=== PATIENT | male | born 1950 | race Caucasian/White ===

== ENCOUNTER 2018-06-04 16:07 | Emergency (ER) | payer MEDICARE, BC ==
[~2018-06-04] VITALS: Ht 175.3 cm; Wt 79.5 kg
[~2018-06-04 16:07] MED LIST: ASPIRIN 32325 MG/TAB PO; LEVOXYL0.1 MG PO; MICARDIS80 MG PO
[2018-06-04 16:11] VITALS: BP 199/100; PULSE 107; TEMP 98.3
[2018-06-04] MEDS ORDERED: AMOXICILLIN 8751 TAB PO (19:22)
[2018-06-04] MEDS ORDERED: MICARDIS80 MG PO (20:10)
== END 2018-06-04 17:22 | disposition left against medical advice (07) ==
LOC: COL.ER 16:07
DX: S61.211A Laceration without foreign body of left index finger without damage to nail, initial encounter (principal); W26.8XXA Contact with other sharp object(s), not elsewhere classified, initial encounter

== ENCOUNTER 2018-06-04 18:08 | Emergency (ER) | payer MEDICARE, BC ==
[~2018-06-04] VITALS: Ht 175.3 cm; Wt 79.5 kg
[2018-06-04 18:18] VITALS: TEMP 98.4
[2018-06-04] MEDS ORDERED: AMOXICILLIN 8751 TAB PO (19:22)
[2018-06-04] MEDS ORDERED: MICARDIS80 MG PO (20:10)
[2018-06-04 20:26] VITALS: BP 184/103; PULSE 96
== END 2018-06-04 20:26 | disposition home or self-care (01) ==
LOC: COL.ER 18:08
DX: S61.211A Laceration without foreign body of left index finger without damage to nail, initial encounter (principal); I10 Essential (primary) hypertension; Z23 Encounter for immunization; W26.8XXA Contact with other sharp object(s), not elsewhere classified, initial encounter

== ENCOUNTER 2018-09-12 09:27 | Day surgery (SDC) | payer MEDICARE, BC ==
[~2018-09-12] VITALS: Ht 175.3 cm; Wt 82.1 kg
[~2018-09-12 09:27] MED LIST changes: +AMOXICILLIN 8751 TAB PO; +MULTI VITAMINS1 TAB PO; +PROBIOTIC FORMU1 CAP PO
[2018-09-12 09:45] VITALS: BP 180/94; PULSE 91; TEMP 98.2
--- NOTE | 2018-09-12 10:03 | NUR ---
Patient's blood pressure when re-checked on right arm reads 171/96. Notified anesthesia provider of pre-op vitals.
[2018-09-12] MEDS ORDERED: NORCO 325 MG-51 TAB PO (14:01)
[2018-09-12 14:27] VITALS: TEMP 97
[2018-09-12 15:25] VITALS: BP 146/75; PULSE 81
--- NOTE | 2018-09-12 15:25 | NUR ---
Patient returns to room 1 per cart from PACU and is awake and alert. Temp 98.2 and room air sats 98%. Bandaid dressings x2 on abdomen clean and dry. IV fluids infusing and denies pain or nausea at present time. Assisted up to the bathroom and is able to void and returns to room. Gait steady. Siderails up x2.
[2018-09-12 15:40] VITALS: BP 147/81; PULSE 85
--- NOTE | 2018-09-12 15:40 | NUR ---
Patient is drinking water and eating muffin. Room air sats 96%. IV fluids infusing.
[2018-09-12 15:55] VITALS: BP 146/87; PULSE 84
--- NOTE | 2018-09-12 15:55 | NUR ---
The patient's vital signs are stable. The patient tolerated the muffin and water and denies any complaints of nausea. The patient states he is a little sore and would like a pain pill before he is discharged. A Conestoga will be administered. The call light is within reach. Will continue to monitor.
[2018-09-12 16:10] VITALS: BP 134/78; PULSE 87
--- NOTE | 2018-09-12 16:10 | NUR ---
The patient's vital signs are stable. The patient denies any complaints or concerns and would like to be discharged. The discharge instructions will be reviewed with the patient.
--- NOTE | 2018-09-12 16:11 | NUR ---
The discharge instructions are reviewed with the patient and all questions are answered. The IV is removed and the tip is intact and a dressing is applied. The patient changes into his personal clothes to be discharged home.
--- NOTE | 2018-09-12 16:25 | NUR ---
The patient is wheeled to the ER entrance via wheelchair to be discharged home via personal vehicle by his sister in-law. The patient is sent home with discharge instructions, education packet, follow-up appointment card, and prescription.
== END 2018-09-12 16:25 | disposition home or self-care (01) ==
LOC: SDCO 09:27
DX: R14.0 Abdominal distension (gaseous) (principal); Z87.19 Personal history of other diseases of the digestive system; I10 Essential (primary) hypertension; G89.29 Other chronic pain; M54.5 Low back pain; Z80.41 Family history of malignant neoplasm of ovary; Z80.42 Family history of malignant neoplasm of prostate; Z80.49 Family history of malignant neoplasm of other genital organs; Z79.899 Other long term (current) drug therapy
CPT/HCPCS: J0360; J2704; J3010; J7120

== ENCOUNTER 2018-09-12 19:46 | Inpatient (IN) | payer MEDICARE, BC ==
[~2018-09-12] VITALS: Ht 175.3 cm; Wt 84.0 kg
[~2018-09-12 19:46] MED LIST changes: +NORCO 325 MG-51 TAB PO
[2018-09-12 20:31] LABS: BASO # 0.1 (0.0-0.2); BASO % 0.3 % (0.0-2.0); EOS % 0.1 % (0-4.0); GRAN # 20.9 (1.4-6.5); GRAN % 93.5 % (42.2-75.2); HEMATOCRIT 46.1 % (42.0-52.0); HEMOGLOBIN 15.2 g/dl (13.5-18.0); LYMPH # 0.7 (1.2-3.4); LYMPH % 3.1 % (20.0-51.0); MEAN CELL VOLUME 87 fl (80.0-100.0); MEAN CORPUSCULAR HEMOGLOBIN 29 pg (27.0-31.0); MEAN CORPUSCULAR HGB CONC 33 g/dl (33.0-37.0); MEAN PLATELET VOLUME 9.8 fl (7.4-10.4); MONO # 0.6 (0.1-0.6); MONO % 2.6 % (1.7-9.3); PLATELET COUNT 264 K/mm3 (130-400); REDCELL DISTRIBUTION WIDTH-CV 13.2 % (11.5-14.5)
[2018-09-12 20:43] LABS: ALBUMIN 4.3 gm/dL (3.5-5.0); CALCIUM 9.1 mg/dL (8.4-10.2); CREATININE, serum 0.88 mg/dL (0.66-1.25); POTASSIUM 4.1 mmol/L (3.4-5.0); TOTAL PROTEIN 7.4 gm/dL (6.4-8.2)
[2018-09-12 22:40] VITALS: BP 125/72; PULSE 107; TEMP 98.9
[2018-09-12 22:42] LABS: COLLECTION METHOD CLEAN CATCH
[2018-09-12 22:48] LABS: MUCOUS Present /lpf; PH 6 (5-8); SQUAMOUS EPITHELIAL None Seen /hpf; URINE APPEARANCE Clear; URINE BACTERIA None Seen /hpf; URINE BILIRUBIN Negative (NEGATIVE); URINE BLOOD Negative (NEGATIVE); URINE COLOR Yellow; URINE GLUCOSE Negative (NEGATIVE); URINE KETONE 1+ (NEGATIVE); URINE LEUKOCYTE ESTERASE Negative (NEGATIVE); URINE NITRATE Negative (NEGATIVE); URINE PROTEIN(semi-quant) Negative (NEGATIVE); URINE RBC 0-2 /hpf; URINE UROBILINOGEN Negative (NEGATIVE)
--- NOTE | 2018-09-12 23:00 | NUR ---
Patient arrived from the ER via wheelchair at 2215 into room 325. Admission B and assessment completed. Med-rec reviewed and allergies confirmed. Patient had a Diagnostic Laprascopy earlier today with Dr. Grey. Patient has 2 lap sites with edges well approximated. Denies passing any gas. Bowel sounds hypoactive. Reports abdominal pressure/soreness to umbilical/lower abdomen, denies needing any pain medication at this time states he just wants to get some sleep. Denies any nausea. Voided with no difficulities, UA sent to lab. IVF initiated per orders. Patient made aware that he is NPO at this time. Denies any concerns or needs. Bed is in a low position with call light in reach.
[2018-09-13] VITALS (15 sets, daily range): BP systolic 96–134; BP diastolic 59–83; PULSE 75–106; TEMP 97.3–99.6
--- NOTE | 2018-09-13 03:24 | NUR ---
Patient is resting in bed states he feels when he gets any kind of pain medication it makes his abdomen feel worse, right now he is complaining of a lot of lower abdominal cramping. Continues to deny passing any gas. Offered to make patient a heat pad to help with the abdominal cramping and patient declined at this time.
--- NOTE | 2018-09-13 04:05 | NUR ---
Patient is awake resting in bed, reports the lower abdominal cramping has subsided for now. Denies any needs or concerns. Has been up independently in room ambulating.
--- NOTE | 2018-09-13 06:50 | NUR ---
lab in to draw blood, bedside shift report received from JUD Fox
[2018-09-13 07:02] LABS: HEMATOCRIT 43.9 % (42.0-52.0); HEMOGLOBIN 14.5 g/dl (13.5-18.0); MEAN CELL VOLUME 87 fl (80.0-100.0); MEAN CORPUSCULAR HEMOGLOBIN 29 pg (27.0-31.0); MEAN CORPUSCULAR HGB CONC 33 g/dl (33.0-37.0); MEAN PLATELET VOLUME 9.8 fl (7.4-10.4); PLATELET COUNT 237 K/mm3 (130-400); RED BLOOD COUNT 5.05 M/mm3 (4.20-5.60); REDCELL DISTRIBUTION WIDTH-CV 13.6 % (11.5-14.5)
--- NOTE | 2018-09-13 07:30 | NUR ---
Dr Grey in to see patient
--- NOTE | 2018-09-13 08:04 | NUR ---
resting in bed, full assessment completed, see interventions for further info, consent signed for surgery later
[2018-09-13 08:33] LABS: BAND 1 % (0-10); EOSINOPHIL 1 % (0-4); LYMPHOCYTE 3 % (20.0-51.0); NEUTROPHILS 94 % (42.0-75.2)
[2018-09-13 08:34] LABS: PLATELET ESTIMATE NORMAL (NORMAL)
--- NOTE | 2018-09-13 09:44 | NUR ---
up to bathroom and voided qs, then back to bed, to surgery per bed, report called to SCOTT Bustillo
--- NOTE | 2018-09-13 13:20 | NUR ---
returned to room per bed from PACU, awake and alert, IVinfusing and placed on pump at 125ml/hr, SCDS on bilaterally, has low pubic line incision with small amount drainage approx 2cm, midline incision without drainage, he is awake and alert, color good, heart rate strong and regular, lungs CTA, abdomen soft and non distended, and bowel sounds quiet, peripheral pulses present in 4 extremities,
--- NOTE | 2018-09-13 14:15 | NUR ---
SUBWAY GUARD started and loading dose of 2mg given, patietn instructed on use of SUBWAY GUARD and verbalizes understanding
--- NOTE | 2018-09-13 14:43 | NUR ---
SW met with patient to discuss discharge planning. Patient lives alone in [place]. His PCP is Dr Juvenal Davalos and he obtains his medications from either [facility] or [facility]. Patient was provided with DPOA forms on his last stay but reports he doesnt have them compeleted at this time. Patient does not have any unmet discharge needs at this time and plans to return home.
--- NOTE | 2018-09-13 15:00 | NUR ---
dozes between checks but awakens easily, denies needs
--- NOTE | 2018-09-13 16:26 | NUR ---
Dr Grey in to see patient
--- NOTE | 2018-09-13 16:37 | NUR ---
voided using urinal, states is using SHEAR TENDER at times
--- NOTE | 2018-09-13 16:45 | NUR ---
awake now but resting in bed, denies needs
--- NOTE | 2018-09-13 18:17 | NUR ---
resting in bed with eyes closed
--- NOTE | 2018-09-13 18:40 | NUR ---
bedside shift report given to JUD Fox
--- NOTE | 2018-09-13 20:20 | NUR ---
Assessment completed. Patient is A&O x 4, resting in bed awakens easily. VSS, currently on room air. Morpine KILNMAN available for abdominal pain control, reports it has been helping with his pain. Abdomen is soft, slightly distended with hypoactive bowel sounds. Abdominal proximal dressing with gauze has a small amount of shadowing on dressing, drainage marked. Distal abdominal gauze dressing with a scant amount of drainage that was previously marked no increase in the drainage. Denies passing any gas or nausea. Voiding with no difficulities, urine is yellow clear. IVF infusing with intermittent antibiotic per orders. BLE scds on. Denies any concerns or needs at this time. Bed is in a low position with call light in reach.
--- NOTE | 2018-09-13 21:15 | NUR ---
Patient sitting up in bed currently sipping on chicken broth, denies any nausea. Continues to use Morphine TITLE I MATH TUTOR for abdominal pain control.
[2018-09-14] VITALS (10 sets, daily range): BP systolic 110–163; BP diastolic 65–88; PULSE 86–104; TEMP 97.4–99.7
--- NOTE | 2018-09-14 06:14 | NUR ---
Patient has rested for short periods of time through the night between nursing disruptions. VSS. Morphine ASSISTIVE TECHNOLOGY TRAINER available for pain control. Abdominal gauze dressings with no increase in drainage. Continues to deny passing any gas. Tolerating diet with no c/o nausea. IVF remain infusing. Bed remains in a low position with call light in reach.
--- NOTE | 2018-09-14 06:50 | NUR ---
resting in bed, bedside shift report received from JUD Fox
[2018-09-14 07:00] LABS: BASO % 0.2 % (0.0-2.0); EOS # 0.1 (0.0-0.7); EOS % 0.9 % (0-4.0); GRAN % 89.9 % (42.2-75.2); LYMPH # 0.6 (1.2-3.4); LYMPH % 4.5 % (20.0-51.0); MEAN CELL VOLUME 89 fl (80.0-100.0); MEAN CORPUSCULAR HGB CONC 32 g/dl (33.0-37.0); MEAN PLATELET VOLUME 10.3 fl (7.4-10.4); MONO # 0.5 (0.1-0.6); PLATELET COUNT 176 K/mm3 (130-400); RED BLOOD COUNT 4.16 M/mm3 (4.20-5.60)
[2018-09-14 07:01] LABS: HEMATOCRIT 36.8 % (42.0-52.0); HEMOGLOBIN 11.9 g/dl (13.5-18.0); MEAN CORPUSCULAR HEMOGLOBIN 29 pg (27.0-31.0)
--- NOTE | 2018-09-14 07:20 | NUR ---
entered room and assisted him up to sitting on side of bed, then was able to stand and then take few steps to recliner, into recliner to rest, c/o pressure feeling in abdomen, as if he needs to belch, starts to belch and then unable, abdomen distended but soft, minimal bowel sounds auscultated, states he does feel better being up, full assessment completed, see interventions for further info, denies further needs
[2018-09-14 07:32] LABS: CALCIUM 7.8 mg/dL (8.4-10.2); CREATININE, serum 0.82 mg/dL (0.66-1.25); POTASSIUM 3.8 mmol/L (3.4-5.0)
--- NOTE | 2018-09-14 08:50 | NUR ---
Dr Grey in to see patient
--- NOTE | 2018-09-14 09:32 | NUR ---
ambulated out in schwartz approx 50 feet, then back to room and into recliner
--- NOTE | 2018-09-14 10:46 | NUR ---
resting in chair, morphine COMMERCIAL ENERGY RATER vial replaced, patient denies needs
--- NOTE | 2018-09-14 13:20 | NUR ---
ambulated in schwartz 50-75 feet and tolerated well, ambulated back to room and into recliner as this is most comfortable
--- NOTE | 2018-09-14 14:40 | NUR ---
family in to visit, denies needs
--- NOTE | 2018-09-14 15:45 | NUR ---
remains sitting up in chair per his request for comfort, denies needs
--- NOTE | 2018-09-14 17:00 | NUR ---
remains in chair per his request, denies needs
--- NOTE | 2018-09-14 17:58 | NUR ---
called nurse and stated he had blood in his urine, entered room and he had used urinal and it was thi in color but no obvious blood, did have a tissue that he said he had used to clean himself that had spots of blood on it, cleansed his penis and meautus and no obvious bleeding noted, stated he had been up standing at chair before this happened, informed him we will monitor
--- NOTE | 2018-09-14 18:47 | NUR ---
bedside shift report given to JUD Calderón
--- NOTE | 2018-09-14 20:00 | NUR ---
atient in chair resting. Alert and oriented x3. Shift assessment complete Gauze to midline distal and proximal with drainage present. CITY CARRIER ASSISTANT and IV fluids infusing to right AC via pump. States mild abdominal cramping. Denies passing gas. Abdomen distended. Denies further needs at this time.
--- NOTE | 2018-09-14 21:00 | NUR ---
Patient states discomfort to abdomen, would like to ambulate. Ambulated >150 feet, steady gait. Denie further needs at this time.
[2018-09-15] VITALS (9 sets, daily range): BP systolic 141–160; BP diastolic 70–88; PULSE 93–103; TEMP 98.5–99.3
--- NOTE | 2018-09-15 05:45 | NUR ---
Patient has rested intermittently through the night. States he is still not able to pass gas, however he is now belching. Continues to feel distended. No change to drainage on dressing. Denies further needs at this time. Will report off to day shift.
--- NOTE | 2018-09-15 10:00 | NUR ---
CHANGED ABDOMINAL DRESSING. KARL INTACT. APPLIED GAUZE & HYPAFIX. GAVE PRN SUPP. PATIENT IN BATHROOM.
--- NOTE | 2018-09-15 17:00 | NUR ---
DR.PAULS [place].
[2018-09-16] VITALS (7 sets, daily range): BP systolic 143–164; BP diastolic 82–90; PULSE 89–100; TEMP 98–98.4
--- NOTE | 2018-09-16 04:03 | NUR ---
Patient resting in bedside recliner at this time. Patient is alert and oriented, answers questions appropriately. IVF and WATER AND GAS HELPER in place per order. Abdomen is distended and firm, patient reports that he passed some gas today and is feeling somewhat better. Hot packs to back and abdomen for patient comfort. Midline is CDI. Patient denies further needs at this time, call light within reach.
--- NOTE | 2018-09-16 05:52 | NUR ---
Patient has rested intermittently overnight. IVF and NURSE WOUND continue per order. Patient has made no complaints of pain or nausea. Warm packs to abdomen and back for patient comfort. Patient denies further needs at this time, call light within reach.
--- NOTE | 2018-09-16 09:08 | NUR ---
Assessment completed, alert/oriented, vital signs stable, reports pain is getting better and is tolerable, his abdomen is firm and distended, he does report passing some gas and has had 2 small BM sence last night, BS + but hypoactive, using warm packs and ambulating often to incerase motility, tolerating some clear liquids but not taking much in orally, IVF infusing, patient not using GEOTHERMAL HEAT PUMP MACHINIST demand and hopes to have GEOTHERMAL HEAT PUMP MACHINIST discontinued
--- NOTE | 2018-09-16 20:00 | NUR ---
Patient resting in bedside recliner at this time. Patient is alert and oriented, answers questions appropriately. IVF continue to infuse into IV in LH. Patient reports that he has continued to pass gas today and is feeling somewhat more comfortable than he has been. Abdomen is still distended, but is not as tight as it has been previously, area is head still operator to palpation. Dressing to midline incision is CDI. Bowel sounds are slow, but audible. Patient denies further needs at this time, call light within reach.
[2018-09-17 04:14] VITALS: BP 141/90; PULSE 98; TEMP 97.6
--- NOTE | 2018-09-17 05:50 | NUR ---
Patient rested intermittently overnight. IVF continue per order. Patient continues to deny pain or needs, call light within reach.
[2018-09-17 07:12] LABS: HEMATOCRIT 41.4 % (42.0-52.0); HEMOGLOBIN 13.8 g/dl (13.5-18.0); MEAN CELL VOLUME 87 fl (80.0-100.0); MEAN CORPUSCULAR HEMOGLOBIN 29 pg (27.0-31.0); MEAN CORPUSCULAR HGB CONC 33 g/dl (33.0-37.0); MEAN PLATELET VOLUME 9.8 fl (7.4-10.4); RED BLOOD COUNT 4.78 M/mm3 (4.20-5.60); REDCELL DISTRIBUTION WIDTH-CV 13.2 % (11.5-14.5)
[2018-09-17 07:19] LABS: PLATELET COUNT 280 K/mm3 (130-400)
[2018-09-17 07:23] LABS: CALCIUM 8.1 mg/dL (8.4-10.2); CREATININE, serum 0.66 mg/dL (0.66-1.25)
[2018-09-17 07:34] VITALS: BP 135/88; PULSE 88; TEMP 97.9
--- NOTE | 2018-09-17 08:00 | NUR ---
Sitting up in chair. Denies pain. Drinking fluids. Abdomen distended and firm. Has active bowel sounds. States is having loose stools and passing gas. IV fluids infusing.
[2018-09-17 12:43] VITALS: BP 137/88; PULSE 87; TEMP 98.7
--- NOTE | 2018-09-17 16:00 | NUR ---
Ambulating in halls again. No complaints. IV potassium infusing.
[2018-09-17 16:45] VITALS: BP 128/79; PULSE 88; TEMP 98.3
--- NOTE | 2018-09-17 18:30 | NUR ---
States feels less distended. Tolerating regular diet without nausea.
[2018-09-17 20:32] VITALS: BP 135/86; PULSE 94; TEMP 98
[2018-09-18 00:17] VITALS: BP 134/80; PULSE 87; TEMP 98.3
[2018-09-18 05:14] VITALS: BP 131/83; PULSE 85; TEMP 98.1
--- NOTE | 2018-09-18 05:40 | NUR ---
Patient has rested intermittently overnight. Abdomen is less distended today and patient reports decreased pain. Patient also reports several loose stools over the course of the shift. Bowel sounds are present in all quadrants. Midline incision and lap site are CDI. Patient remains independent in his room. IVF infusing per order. Patient continues to decline pain medication, denies further needs at this time, call light within reach.
--- NOTE | 2018-09-18 06:48 | NUR ---
awake and sitting up in chair, bedside shift report received marlon Garland LPN
--- NOTE | 2018-09-18 07:00 | NUR ---
full assessment completed, see interventions for further info, denies pain or needs
[2018-09-18 07:25] VITALS: BP 144/83; PULSE 82; TEMP 98.6
--- NOTE | 2018-09-18 08:30 | NUR ---
resting in chair and denies needs
--- NOTE | 2018-09-18 09:15 | NUR ---
remains up in recliner and appears to be dozing, awakens easily and takes potassium in apple juice
--- NOTE | 2018-09-18 10:30 | NUR ---
up and about in room independently, has not ordered breakfast but is considering it
--- NOTE | 2018-09-18 11:15 | NUR ---
sitting up and ready to have something to eat
[2018-09-18 11:32] VITALS: BP 147/86; PULSE 90; TEMP 97.8
--- NOTE | 2018-09-18 12:35 | NUR ---
Dr Grey was in to see patient, explained to patient will obtain stool specimen and verbalizes understanding
--- NOTE | 2018-09-18 13:30 | NUR ---
visiting with family, IV to INT
--- NOTE | 2018-09-18 15:07 | NUR ---
resting in chair visiting with family, denies needs
[2018-09-18 15:24] VITALS: BP 157/87; PULSE 94; TEMP 98.4
--- NOTE | 2018-09-18 16:42 | NUR ---
ambulating in schwartz independently, denies needs
--- NOTE | 2018-09-18 18:45 | NUR ---
bedside shift report given to JUD Fox
--- NOTE | 2018-09-18 18:46 | NUR ---
bedside shift report given to JUD Currie
--- NOTE | 2018-09-18 19:30 | NUR ---
Assessment completed. Patient is A&O x 4. VSS, on room air. Reports "aching" pain as a 1/10 to abdomen, denies needing any interventions. Abdomen is soft, tender with audible bowel sounds. Patient reports having one small yellow stool today. Abdominal midline and lap site with semaj intact. Tolerating diet with no c/o nausea. Voiding with no difficulities. INT to right antecubital. Up independently in room with a steady gait. Denies any concerns or needs at this time. Patient states he's looking forward to possibly discharging tomorrow. Call light remains within reach.
[2018-09-18 20:35] VITALS: BP 140/75; PULSE 79; TEMP 98.6
[2018-09-19 00:46] VITALS: BP 145/84; PULSE 84; TEMP 98.6
--- NOTE | 2018-09-19 05:15 | NUR ---
Patient has rested intermittently through the night between nursing disruptions. VSS, remains on room air. Continues to deny needing any pain medication, rates abdominal pain 1/10. Abdominal midline and lap site with semaj intact. Continues to pass gas and denies any nausea. Up indepedently in room with a steady gait. INT to right antecubital with intermittent antibiotic.
[2018-09-19 06:06] VITALS: BP 137/79; PULSE 84; TEMP 98.3
[2018-09-19 07:42] VITALS: BP 143/83; PULSE 82; TEMP 97.8
--- NOTE | 2018-09-19 08:30 | NUR ---
PATIENT IS A&O. VSS. DENIES PAIN, SOME DISCOMFORT WITH GAS. PATIENT IS PASSING GAS AND HAVE LOOSE STOOLS. ABDOMIN IS MUCH LESS DISTENDED, SOFT AND WITH POSITIVE BOWL SOUNDS. NO C/O N/V. TOLERATING GENERAL DIET. HEAD TO TOE ASSESSMENT WNL. PATIENT HOPING TO DISCHARGE HOME LATER TODAY. AM MEDS GIVEN. NO OTHER NEEDS AT THIS TIME. CALL LIGHT IN REACH.
--- NOTE | 2018-09-19 10:20 | NUR ---
AT BEDSIDE. SEE DISCHARGE ORDERS.
--- NOTE | 2018-09-19 10:44 | NUR ---
The patient is to discharge back home today, 09/19. SW presented and explained the IM form to the patient. The patient verbalized understanding, signed, and he was provided a copy. No additional needs at this time.
[2018-09-19 11:11] VITALS: BP 152/95; PULSE 97; TEMP 98.6
--- NOTE | 2018-09-19 12:30 | NUR ---
PATIENT GETTING DRESSED FOR DISCHARGE. DC'D RIGHT AC IV, COVERED WITH GAUZE & BANDAID. PATIENT PACKING BELONGINGS.
--- NOTE | 2018-09-19 13:00 | NUR ---
PATIENT DISCHARGING. GAVE DISCHARGE INSTRUCTIONS & FOLLOW UP APT. ANSWERED ALL QUESTIONS/CONCERNS. PATIENT DISCHARGED VIA WHEELCHAIR TO PERSONAL VEHICLE WITH FAMILY.
== END 2018-09-19 13:00 | disposition home or self-care (01) | DRG 908 ==
LOC: COL.ER 19:46 → SURG 21:06
PROVIDERS: Emergency Medicine; Surgery; ADMIT Surgery
PROC: 0DQA0ZZ Repair Jejunum, Open Approach (ICD-10-PCS; principal; 2018-09-13 10:00)
PROC: 0WJP4ZZ Inspection of Gastrointestinal Tract, Percutaneous Endoscopic Approach (ICD-10-PCS; 2018-09-13 10:00)
DX: K91.71 Accidental puncture and laceration of a digestive system organ or structure during a digestive system procedure (principal); K56.7 Ileus, unspecified; T81.44XA Sepsis following a procedure, initial encounter; I10 Essential (primary) hypertension; E87.6 Hypokalemia
CPT/HCPCS: OP; A4216; G0378; J0690; J0696; J1170; J1200; J1650; J1885; J2270; J2300; J2370; J2405; J2704; J3010; J3480; J7030; J7050; J7120; Q9967

== ENCOUNTER 2020-08-10 23:35 | Inpatient (IN) | payer MEDICARE, BC ==
[~2020-08-10] VITALS: Ht 172.7 cm; Wt 78.0 kg
[2020-08-11 00:07] LABS: BASO % 0.2 % (0.0-2.0); EOS # 0.1 (0.0-0.7); EOS % 0.3 % (0-4.0); GRAN # 17.5 (1.4-6.5); GRAN % 87.5 % (42.2-75.2); HEMATOCRIT 48.3 % (42.0-52.0); HEMOGLOBIN 15.2 g/dl (13.5-18.0); LYMPH # 1.4 (1.2-3.4); MEAN CELL VOLUME 86 fl (80.0-100.0); MEAN CORPUSCULAR HEMOGLOBIN 27 pg (27.0-31.0); MEAN CORPUSCULAR HGB CONC 32 g/dl (33.0-37.0); MEAN PLATELET VOLUME 10.6 fl (7.4-10.4); MONO # 0.9 (0.1-0.6); MONO % 4.6 % (1.7-9.3); PLATELET COUNT 326 K/mm3 (130-400); RED BLOOD COUNT 5.63 M/mm3 (4.20-5.60)
[2020-08-11 00:20] LABS: ALANINE AMINOTRANSFERASE 25 U/L (4-49); ALKALINE PHOSPHATASE 113 U/L (50-136); ANION GAP 14 mmol/L (7-16); AST,SGOT 31 U/L (15-37); BILIRUBIN,TOTAL 0.6 mg/dL (0.0-1.0); BLOOD UREA NITROGEN 26 mg/dL (9-20); CALCIUM 10.3 mg/dL (8.4-10.2); CARBON DIOXIDE 29 mmol/L (22-30); CHLORIDE 99 mmol/L (98-107); CREATININE, serum 0.99 (0.66-1.25); GLUCOSE 133 mg/dL (74-106); LIPASE 58 U/L (23-300); POTASSIUM 3.6 mmol/L (3.4-5.0); SODIUM 142 mmol/L (137-145); TOTAL PROTEIN 7.9 gm/dL (6.4-8.2)
[2020-08-11 00:22] LABS: C-REACTIVE PROTEIN < 0.5 mg/dL (0.0-0.9)
[2020-08-11] MEDS ORDERED: SYNTHROID0.1 MG/TAB PO (10:26)
[2020-08-11 10:45] VITALS: BP 120/79; PULSE 98; TEMP 99
[2020-08-11 10:47] VITALS: BP 120/79; PULSE 98; TEMP 99
--- NOTE | 2020-08-11 11:01 | NUR ---
Pt arrived to room 346 at this time. He is A/O x4. His breathing is even and unlabored on RA. Pt denies SOB. Currently pain is controlled, states he feels "full". No N/V at this time. NG tube secured to patients gown and hooked up to intermittent suction, brown liquid draining out. Pt reports they were not getting any liquid from NG in ER. IV to RAC infusing without issues. POC discussed with patient who verbalizes understanding. Has no needs at this time. Call light within reach.
--- NOTE | 2020-08-11 11:31 | NUR ---
Gear Cutting Machine Operator met with patient to discuss discharge planning. Patient lives alone in [place] and sees Dr. Davalos for primary care. Patient obtains medications from [facility] with no difficulties. Patient states he "shops around" and will occasionally use other pharmacies. Patient does not use any DME and reports independence with ADLS. Patient does not have Advance Directives and was not interested in completing DPOA-HC at this time, although he does mention he has been discussing this with his primary care physician. Patient is not , has no children, and his parents are . Patient has four living siblings, Isaura (ph#[phone]), Raphael (ph#[phone]), Keny, and Violeta (Marian). Patient plans to return home upon discharge. KYLIE contacted patient's sister, Isaura who is in agreement with discharge plan. KYLIE contacted medical records as there was another patient's Advance Directives scanned into patient's EMR. Nusrat with medical records advised she will correct this error.
--- NOTE | 2020-08-11 11:47 | NUR ---
First visit from the tombstone setter. No needs right now.
[2020-08-11 14:15] LABS: COLLECTION METHOD CLEAN CATCH
[2020-08-11 14:21] LABS: MUCOUS Present /lpf; PH 5 (5-8); SQUAMOUS EPITHELIAL None Seen /hpf; URINE APPEARANCE Hazy; URINE BACTERIA None Seen /hpf; URINE BILIRUBIN Negative (NEGATIVE); URINE BLOOD Negative (NEGATIVE); URINE COLOR Yellow; URINE GLUCOSE Negative (NEGATIVE); URINE KETONE 1+ (NEGATIVE); URINE LEUKOCYTE ESTERASE Negative (NEGATIVE); URINE NITRATE Negative (NEGATIVE); URINE PROTEIN(semi-quant) 1+ (NEGATIVE); URINE UROBILINOGEN Negative (NEGATIVE)
[2020-08-11 16:55] VITALS: BP 105/60; PULSE 85; TEMP 98.2
--- NOTE | 2020-08-11 17:42 | NUR ---
NG continues to LIS, brown drainage present. Bowel rest discussed with patient. Abdomen slightly softer and less distended. Pt does report passing gas. No N/V or pain at this time. Will continue to monitor.
[2020-08-11 20:00] VITALS: BP 116/75; PULSE 85; TEMP 99.4
--- NOTE | 2020-08-11 20:30 | NUR ---
Pt. laying in bed. Pt. is A&OX3, assessment complete. IV to rac patent. Pt. denies pain at this time. NG tube to LIS brown gastric drainage noted to suction canister. Pt. denies further needs, call light within reach.
[2020-08-12] VITALS (7 sets, daily range): BP systolic 125–151; BP diastolic 73–89; PULSE 83–90; TEMP 98.1–98.9
[2020-08-12 06:32] LABS: HEMATOCRIT 39.4 % (42.0-52.0); MEAN CELL VOLUME 88 fl (80.0-100.0); MEAN CORPUSCULAR HEMOGLOBIN 27 pg (27.0-31.0); MEAN CORPUSCULAR HGB CONC 31 g/dl (33.0-37.0); MEAN PLATELET VOLUME 10.8 fl (7.4-10.4); PLATELET COUNT 234 K/mm3 (130-400); RED BLOOD COUNT 4.49 M/mm3 (4.20-5.60); REDCELL DISTRIBUTION WIDTH-CV 14.2 % (11.5-14.5)
[2020-08-12 06:40] LABS: HEMOGLOBIN 12.3 g/dl (13.5-18.0)
[2020-08-12 06:41] LABS: CALCIUM 8.2 mg/dL (8.4-10.2); CREATININE, serum 0.81 (0.66-1.25); POTASSIUM 3.7 mmol/L (3.4-5.0)
--- NOTE | 2020-08-12 19:30 | NUR ---
Pt. sitting up in bed at this time. Pt. is A&OX3, assessment complete. IV to rt. ac patent, IV fluids infusing per orders. NG tube to LIS, minimal amount of sherman drainage noted. Pt. denies pain or other needs, call light within reach.
[2020-08-13 03:13] VITALS: BP 143/82; PULSE 86; TEMP 98.5
[2020-08-13 07:21] VITALS: BP 130/78; PULSE 81; TEMP 98
--- NOTE | 2020-08-13 09:24 | NUR ---
NGT removed per drs order at 0900.
[2020-08-13 11:41] VITALS: BP 116/74; PULSE 86; TEMP 97.3
--- NOTE | 2020-08-13 15:50 | NUR ---
Discharge instructions reveiwed with patient, verbalized understanding. Discharged via wheelchair to auto/home at 1550.
== END 2020-08-13 15:50 | disposition home or self-care (01) | DRG 390 ==
LOC: COL.ER 23:35 → SURG 08-11 02:04 → SDCO 08-11 06:01 → COL.ER 08-11 06:01 → SURG 08-11 14:21
PROVIDERS: Emergency Medicine; ADMIT Surgery
DX: K56.50 Intestinal adhesions [bands], unspecified as to partial versus complete obstruction (principal); E03.9 Hypothyroidism, unspecified; N40.0 Benign prostatic hyperplasia without lower urinary tract symptoms; J98.4 Other disorders of lung; N28.89 Other specified disorders of kidney and ureter; R59.9 Enlarged lymph nodes, unspecified; N32.89 Other specified disorders of bladder; Z87.891 Personal history of nicotine dependence
CPT/HCPCS: C9113; J1650; J1956; J2060; J2270; J2405; J7030; Q9967

== ENCOUNTER 2020-11-07 09:54 | Day surgery (SDC) | payer MEDICARE, BC ==
[2020-11-07] VITALS (9 sets, daily range): BP systolic 128–191; BP diastolic 66–112; PULSE 63–110; TEMP 98
[~2020-11-07] VITALS: Ht 172.7 cm; Wt 78.1 kg
[~2020-11-07 09:54] MED LIST changes: +SYNTHROID0.1 MG/TAB PO
[2020-11-07] MEDS ORDERED: ONE-A-DAY ESSE1 EACH PO (10:48)
[2020-11-07] MEDS ORDERED: FLOMAX 0.40.4 MG/CAP PO (10:48)
[2020-11-07] MEDS ORDERED: PYRIDIUM 100MG100 MG PO (12:41)
--- NOTE | 2020-11-07 13:50 | NUR ---
Pt to [facility] via cart from PACU. Pt awake and alert. Pt wanting to use restroom. Pt assisted to restroom with stand by assistance. Call light within reach.
--- NOTE | 2020-11-07 14:05 | NUR ---
Pt back from restroom. Pt states "I was only able to go a little bit, it was mostly blood." Pt c/o of feeling like still needs to void. Explained to pt about bladder spasms. Will ask physician for pyridium order to help with this. Pt taking sips of water without difficulties. Call light within reach.
--- NOTE | 2020-11-07 14:20 | NUR ---
Pyridium 95mg po given per orders. Pt denies need for a snack at this time. Call light within reach.
--- NOTE | 2020-11-07 14:35 | NUR ---
Pt still very uncomfortable with bladder spasms. Pt only voids a few dribbles of blood into urinal at a time. Will bladder scan pt.
--- NOTE | 2020-11-07 14:50 | NUR ---
Pt stood and voided 50ml of bright gonzalez red urine. Unable to void more. Bladder scan done with 782 ml shown. Will notify physician.
--- NOTE | 2020-11-07 15:00 | NUR ---
notified of bladder scan total and hematuria. Orders for straight cath ordered.
--- NOTE | 2020-11-07 15:15 | NUR ---
Straigh cath done per sterile technique by Aziza RENNER. 1000ml urine obtained with 2 large clots noted. Will continue to monitor.
--- NOTE | 2020-11-07 15:30 | NUR ---
Pt c/o being unable to relax. Pt explaines he's not been able to sleep for "2 days." and "I'm just so uncomfortable." Pt agrees to try a pain pill to see if this helps him. Will provide a percocet per orders. Pt eating pudding and crackers and tolerating it without difficulties.
--- NOTE | 2020-11-07 16:01 | NUR ---
Pt voids 50ml bright gonzalez red urine in urinal. Grape juice and more water provided per request. Will continue to monitor.
--- NOTE | 2020-11-07 16:30 | NUR ---
Pt very uncomfortable and states "I'm not able to urinate." Pt attempted to use urinal with only approximetly 25ml of gonzalez red urine out. Bladder scan done with 797ml shown. Message left for Physician. Awaiting return phone call.
--- NOTE | 2020-11-07 16:50 | NUR ---
called back. Instructed to place collier catheter. Pt ok with this.
--- NOTE | 2020-11-07 17:00 | NUR ---
16 indonesian 10ml bulb placed using sterile technique. Immediate return of orange/rust colored urine. Urine is clear. No clots or visual hematuria. 700ml out. Stat lock placed. Pt expresses relief of pain and pressure.
--- NOTE | 2020-11-07 17:45 | NUR ---
Banuelos care, leg bag, and catheter care reviewed with pt. Pt voices understanding. Supplies given-leg bag, catheter plug, and alcohol prep pads. Discharge instructions reviewed. Pt voices understanding. IV site discontinued. Assisted pt with dressing. Call light within reach.
--- NOTE | 2020-11-07 18:00 | NUR ---
Pt escorted to private car via wheel chair. Pt accompanied home by his sister in law.
== END 2020-11-07 18:00 | disposition home or self-care (01) ==
LOC: SDCO
DX: N13.30 Unspecified hydronephrosis (principal); N32.89 Other specified disorders of bladder; N28.89 Other specified disorders of kidney and ureter; R35.1 Nocturia; R31.21 Asymptomatic microscopic hematuria; I10 Essential (primary) hypertension; Z90.89 Acquired absence of other organs; Z79.899 Other long term (current) drug therapy; Z80.42 Family history of malignant neoplasm of prostate; Z20.822 Contact with and (suspected) exposure to COVID-19
CPT/HCPCS: C1769; J0690; J1100; J2405; J2704; J3010; J7120; Q9967

== ENCOUNTER 2020-12-05 08:44 | Day surgery (SDC) | payer MEDICARE, BC ==
[~2020-12-05] VITALS: Ht 174.6 cm; Wt 76.4 kg
[~2020-12-05 08:44] MED LIST changes: +FLOMAX 0.40.4 MG/CAP PO; +ONE-A-DAY ESSE1 EACH PO; +PYRIDIUM 100MG100 MG PO
[2020-12-05 09:06] VITALS: BP 157/86; PULSE 91; TEMP 97.3
[2020-12-05] MEDS ORDERED: EUTHYROX PO (09:13)
[2020-12-05] MEDS ORDERED: MICARDIS80 MG PO (09:15)
[2020-12-05 10:35] VITALS: BP 102/69; PULSE 81
--- NOTE | 2020-12-05 10:35 | NUR ---
Pt to GI bay 8 via cart from [facility]. Pt awake and alert. Ambulates to recliner with stand by assistance. Warm blanket provided. Juice and pudding given per pt request. Will continue to monitor. Call light within reach.
[2020-12-05 10:50] VITALS: BP 107/65; PULSE 73
--- NOTE | 2020-12-05 10:50 | NUR ---
Pt continues to rest. Tolerating po food and fluids without difficulties. Pt denies needs. Call light within reach.
[2020-12-05 11:05] VITALS: BP 147/94; PULSE 69
--- NOTE | 2020-12-05 11:05 | NUR ---
into speak with pt.
--- NOTE | 2020-12-05 11:15 | NUR ---
Discharge instructions reviewed. Pt voices understanding. IV site discontinued with all parts intact. Pt up to dress. Call light within reach.
--- NOTE | 2020-12-05 11:30 | NUR ---
Pt escorted to private car via wheel chair. Pt accompanied home by his [id number]-ag-knj.
== END 2020-12-05 11:30 | disposition home or self-care (01) ==
LOC: SDCO 08:44
DX: Z12.11 Encounter for screening for malignant neoplasm of colon (principal); C82.93 Follicular lymphoma, unspecified, intra-abdominal lymph nodes; D12.8 Benign neoplasm of rectum; K57.30 Diverticulosis of large intestine without perforation or abscess without bleeding; K56.600 Partial intestinal obstruction, unspecified as to cause; Z20.822 Contact with and (suspected) exposure to COVID-19; Z79.899 Other long term (current) drug therapy; Z87.891 Personal history of nicotine dependence; Z90.89 Acquired absence of other organs
CPT/HCPCS: J2704; J7030

== ENCOUNTER 2021-04-01 13:07 | Observation (INO) | payer MEDICARE, BC ==
[~2021-04-01] VITALS: Ht 172.7 cm; Wt 75.0 kg
[~2021-04-01 13:07] MED LIST changes: +EUTHYROX PO
[2021-04-01 14:18] LABS: BASO % 0.2 % (0.0-2.0); EOS % 0.1 % (0-4.0); GRAN # 13.6 (1.4-6.5); GRAN % 86.5 % (42.2-75.2); HEMATOCRIT 52.8 % (42.0-52.0); HEMOGLOBIN 17.1 g/dl (13.5-18.0); LYMPH # 1.1 (1.2-3.4); LYMPH % 6.7 % (20.0-51.0); MEAN CELL VOLUME 88 fl (80.0-100.0); MEAN CORPUSCULAR HEMOGLOBIN 28 pg (27.0-31.0); MEAN CORPUSCULAR HGB CONC 32 g/dl (33.0-37.0); MEAN PLATELET VOLUME 11.3 fl (7.4-10.4); MONO % 6.2 % (1.7-9.3); PLATELET COUNT 263 K/mm3 (130-400); RED BLOOD COUNT 6.03 M/mm3 (4.20-5.60); REDCELL DISTRIBUTION WIDTH-CV 14.2 % (11.5-14.5)
[2021-04-01 15:05] LABS: ALBUMIN 3.9 gm/dL (3.5-5.0); BILIRUBIN,TOTAL 0.7 mg/dL (0.0-1.0); C-REACTIVE PROTEIN 1.9 mg/dL (0.0-0.9); CALCIUM 8.9 mg/dL (8.4-10.2); CREATININE, serum 0.94 (0.66-1.25); POTASSIUM 4.1 mmol/L (3.4-5.0); TOTAL PROTEIN 6.4 gm/dL (6.4-8.2)
--- NOTE | 2021-04-01 20:30 | NUR ---
ADMITTED TO ROOM 346 PER W/C FROM ER. PT A&OX4. D51/2 20K+ AT 100CC/HR TO LT F/A. ABD PAIN LEVEL UNDER CONTROL AT THIS TIME. DENIES NAUSEA. NG TO INTERM SUCTION. PT SAYS CAN'T SLEEP WITH THAT NOISE. PROVIDED COTTON FOR EARS. CALL LIGHT IN REACH.
[2021-04-01 21:02] VITALS: BP 132/72; PULSE 87; TEMP 98.3
--- NOTE | 2021-04-01 23:49 | NUR ---
PT SLEEPING. NO EVIDENCE OF PAIN. NG TO LIS WITH ONLY DRAINAGE IN TUBING.
[2021-04-02 00:21] VITALS: BP 128/72; PULSE 91; TEMP 98.4
[2021-04-02 04:05] VITALS: BP 121/77; PULSE 84; TEMP 98.1
[2021-04-02 06:55] LABS: BASO % 0.3 % (0.0-2.0); EOS # 0.2 (0.0-0.7); EOS % 1.4 % (0-4.0); GRAN # 8.1 (1.4-6.5); GRAN % 77.4 % (42.2-75.2); HEMATOCRIT 44.8 % (42.0-52.0); LYMPH # 1.3 (1.2-3.4); LYMPH % 11.9 % (20.0-51.0); MEAN CELL VOLUME 89 fl (80.0-100.0); MEAN CORPUSCULAR HEMOGLOBIN 29 pg (27.0-31.0); MEAN CORPUSCULAR HGB CONC 32 g/dl (33.0-37.0); MONO # 0.9 (0.1-0.6); MONO % 8.7 % (1.7-9.3); PLATELET COUNT 213 K/mm3 (130-400); RED BLOOD COUNT 5.01 M/mm3 (4.20-5.60); REDCELL DISTRIBUTION WIDTH-CV 14.3 % (11.5-14.5)
[2021-04-02 07:00] LABS: HEMOGLOBIN 14.4 g/dl (13.5-18.0)
[2021-04-02 07:10] LABS: CALCIUM 8.6 mg/dL (8.4-10.2); CREATININE, serum 0.82 (0.66-1.25); POTASSIUM 4.1 mmol/L (3.4-5.0)
[2021-04-02 08:36] VITALS: BP 124/81; PULSE 74; TEMP 98.4
--- NOTE | 2021-04-02 10:00 | NUR ---
rounded. Ng tube clammped. Patient continues to deny nausea & pain. Mouth swabs provided. He has been up to the bathroom independently. Voiding, no BM.
[2021-04-02 11:36] VITALS: BP 109/69; PULSE 82; TEMP 97.7
--- NOTE | 2021-04-02 11:59 | NUR ---
Plan is to return home independently. SW met with patient about care. Patient reports that he resides locally and is independen. Patient shares that he has a sister in law that is his EMR contact and it is on his chart. Client shares that Dr. Davalos is PCP and Dr. Hensley is the specialis. Patient reports that he has a regular appointment in 2 months. Patient reports that he uses [facility] for medications without difficulty. Patient shares that he has his transport in the parking lot and will be able to transport self home. Patient denies having any DME supports for mobility, heart or oxygen. Patient shares that he has everything he needs and care support has been great. WF for any care updates. Educated patient on services with case management. BRENNA
--- NOTE | 2021-04-02 13:31 | NUR ---
Patient up to the bathroom, had a bowel movement & had an accident. Assisted with fresh linens & pericares. Denies pain or nausea.
--- NOTE | 2021-04-02 14:00 | NUR ---
NOTIFED ABOUT NO NG RESIDUAL, NG REMOVED & DIET ADVANCED.
[2021-04-02 16:00] VITALS: BP 105/64; PULSE 81; TEMP 98.4
--- NOTE | 2021-04-02 18:20 | NUR ---
Patient continues to deny pain & nausea. Tolerated diet. called to check in on patient. Discharge orders obtained. Discharge paperwork reviewed with patient. Patient denies questions or concerns. Patient driving himself home-okayed by .
--- NOTE | 2021-04-03 11:23 | NUR ---
First visit from the retail marketing specialist. No needs right now.
== END 2021-04-02 18:20 | disposition home or self-care (01) ==
LOC: COL.ER 13:07 → SURG 17:20
PROVIDERS: Personal Emergency Response Attendant; Physician Assistant; ADMIT Surgery
DX: K56.699 Other intestinal obstruction unspecified as to partial versus complete obstruction (principal); Z90.89 Acquired absence of other organs; Z79.890 Hormone replacement therapy; Z79.899 Other long term (current) drug therapy
CPT/HCPCS: G0378; J2270; J3480; J7030

== ENCOUNTER 2021-09-22 13:45 | Emergency (ER) | payer MEDICARE, BC ==
[~2021-09-22] VITALS: Ht 172.7 cm; Wt 74.1 kg
[2021-09-22 14:23] VITALS: BP 114/80; PULSE 114; TEMP 98.5
== END 2021-09-22 16:23 | disposition left against medical advice (07) ==
LOC: COL.ER 13:45
DX: R10.9 Unspecified abdominal pain (principal)

== ENCOUNTER 2021-09-25 10:12 | Day surgery (SDC) | payer MEDICARE, BC ==
[~2021-09-25] VITALS: Ht 174 cm; Wt 75.1 kg
--- NOTE | 2021-09-25 10:33 | NUR ---
Initial visit; Patient requested prayer prior to his 'Procedure'. prayed with patient who kindly thanked her.
[2021-09-25] MEDS ORDERED: MICARDIS80 MG PO (10:45)
[2021-09-25 10:47] VITALS: BP 160/95; PULSE 102; TEMP 97.7
[2021-09-25 13:06] VITALS: BP 114/80; PULSE 85; TEMP 98.3
[2021-09-25 13:15] VITALS: BP 121/92; PULSE 77
[2021-09-25 13:30] VITALS: BP 148/90; PULSE 75
[2021-09-25 13:45] VITALS: BP 142/92; PULSE 82
[2021-09-25 14:00] VITALS: BP 157/91; PULSE 86
--- NOTE | 2021-09-25 14:10 | NUR ---
1306 Pt returns from endo procedure via cart and RN assist to [facility]. Pt ambulates from cart to recliner with RN assist. Monitors on and alarms set. Call light within reach. Report received from JUD [place]. Pt alert and oriented. Pt requests pudding and juice. Pt denies any pain or nausea. 1315 Pt taking food and drink well. No complications noted. 1407 Discharge instructions given to pt. All questions answered to his satisfaction. Handed to pt are a thank you card and discharge information. 1410 Pt transferred out of the hospital via wheelchair and Harjinder assist, to private vehicle driven by friend.
== END 2021-09-25 14:10 | disposition home or self-care (01) ==
LOC: SDCO 10:12
DX: K25.4 Chronic or unspecified gastric ulcer with hemorrhage (principal); C85.93 Non-Hodgkin lymphoma, unspecified, intra-abdominal lymph nodes; I10 Essential (primary) hypertension; M19.90 Unspecified osteoarthritis, unspecified site; M54.9 Dorsalgia, unspecified; E03.9 Hypothyroidism, unspecified; E78.00 Pure hypercholesterolemia, unspecified; D84.9 Immunodeficiency, unspecified; Z79.899 Other long term (current) drug therapy; Z90.89 Acquired absence of other organs
CPT/HCPCS: J2704; J7120